=== PATIENT | female | born 1955 | race Caucasian/White ===

== ENCOUNTER 2017-02-02 09:52 | Inpatient (IN) | payer BC ==
[~2017-02-02] VITALS: Ht 162.6 cm; Wt 121.6 kg
--- NOTE | ~2017-02-02 | HC ---
[facility] [place] [address] CONSULTATION Name: SABINO STEVEN Room #: 435-P ADM IN M.R.#: [id number] Admission: 02/02/17 Attend Phys: Cruzito Hernandez Discharge: Date of : 53 Report #: [id number] THIS REPORT FOR: //name// CC: Saulo Mcintyre CARDIOLOGY CONSULTATION HISTORY OF PRESENT ILLNESS: The patient is a 61-year-old female. I am asked to evaluate her by Dr. Cristian Mcintyre and Dr. Ajith Doyle. She was admitted from Dr. Mcintyre's office for some significant anemia, hemoglobin in the 9 range. Apparently does have some history of a prior anemic episode a few years ago. Progressive dyspnea and shortness of breath, but she states the shortness of breath and dyspnea with exertion initiated approximately 3-4 weeks ago, has become progressively worse. She has had some large lower extremities for some time with some brawny edema, but they worsened over the last few weeks in addition. She underwent a Doppler for deep venous thrombosis, which was negative and a CT per PE protocol for some mild mediastinal adenopathy, interstitial infiltrates and septal thickening were noted, some blebs, some questionable atypical pneumonia, no definite clots. Abdominal CT, fatty liver, hepatomegaly, cholecystectomy, appendectomy, hysterectomy. The lower extremity venous Doppler was negative. She has had some dyspnea, but no definite chest pain. She has some equivocal EKG changes, but has maintained sinus rhythm. EKG, sinus rhythm with LVH. There have not been any constitutional illnesses such as fever, chills, nausea or vomiting. She appears also be significantly iron deficient. She had a cardiac catheterization, she believes 20 years ago. No prior cardiac intervention, does not follow with Cardiology. She does not take cholesterol medicines. PAST MEDICAL HISTORY: Positive for hypertension, obesity, lower extremity edema, lymphedema, venous insufficiency, cholecystectomy, hysterectomy, appendectomy, nephrolithiasis with lithotripsy. SOCIAL HISTORY: She is a nurse at the [employer]. 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 No alcohol or tobacco. FAMILY HISTORY: Mother, she states had an infarct in her 40s and father may be in his 60s, but lived to his 80s. ALLERGIES: KOKO INHIBITORS, CODEINE, ERYTHROMYCIN, MINOCYCLINE, CIPRO, DILANTIN, IBUPROFEN, ASPIRIN, not sure what happens with aspirin. HOME MEDICATIONS: Ziac 10/6.25, amlodipine, Prilosec, Tums, Tylenol. LABORATORY DATA: Creatinine 1.1, potassium 2.8. BNP 2554. Iron is low 45, TIBC high 515, 9% saturation. H and H is 9.3 [address]. [address] [address] CONSULTATION Name: SABINO STEVEN Jace Room #: 435-P [facility] IN M.R.#: [id number] Admission: 02/02/17 Attend Phys: Cruzito Hernandez Discharge: Date of : 53 Report #: [id number] PHYSICAL EXAMINATION: VITAL SIGNS: Blood pressure ____, pulse 57. GENERAL: She was diuresed with the IV Lasix. She feels fine otherwise. She is sitting up in the bed. HEENT: Pharynx is clear. NECK: Shows preserved upstrokes, questionable JVD. LUNGS: Prolonged expiratory phase, diminished in the bases. CARDIOVASCULAR: Regular rate and rhythm, S1, S2. ABDOMEN: Obese, nontender. I cannot palpate the liver edge, though may be slightly enlarged. EXTREMITIES: Revealed significant brawny edema with some pitting up to the level of the knee bilaterally. There is no significant skin breakdown. SKIN: Warm and dry without xanthoma or ulcer. There are mild venous stasis changes, some eczematous changes. NEUROLOGIC: Intact. MUSCULOSKELETAL: Gross joint deformity, valgus deformity of the knees. I did not ambulate her. ASSESSMENT: 1. Dyspnea, suspect multifactorial. 2. Anemia. 3. Hypertension. 4. Obesity. 5. Lymphedema/venous insufficiency. RECOMMENDATIONS AND PLAN: We will check an echo Doppler, replace the potassium. Agree with the Lasix, GI evaluation with an EGD and colonoscopy. We will obtain an echo Doppler and consider pharmacologic stress testing after GI has stabilized. I do not believe her ____ unstable cardiac issues here, but we will need further evaluation. We will follow with you. By: [id number] Chris Ramsay MD, FACC /nt
--- NOTE | ~2017-02-02 | 2DMMODE ---
[facility] [address] [place] [address] 2 D/M-MODE ECHOCARDIOGRAM Name: SABINO STEVEN Room #: 435-P [facility] IN ..#: [id number] Admission: 02/02/17 Attend Phys: Saulo Delogn Discharge: Date of : 53 Date of Service: 02/03/17 0958 Report #: [id number] THIS REPORT FOR: //name// APPROVED REPORT Study performed: 02/03/2017 08:25:26 EXAM: Comprehensive 2D, Doppler, and color-flow Echocardiogram Patient Location: Echo lab Room #: [facility] Status: routine BSA: 2.22 BP: 177/66 mmHg Other Information Study Quality: Good Indications Dyspnea Hypertension/HDD 2D Dimensions RVDd: 38.20 mm LVEF(%): 62.95 (>50%) IVSd: 11.75 (7-11mm) LVOT Diam: 14.69 (18-24mm) LVDd: 46.89 mm PWd: 12.11 (7-11mm) Ascending Ao: 31.98 (22-36mm) LVDs: 30.93 (25-40mm) Aortic Root: 23.17 mm IVC: 28.00 mm Lopez's LVEF: 62.95 % Volumes Left Atrial Volume (Systole) Single Plane 4CH: 84.30 mL Single Plane 2CH: 59.97 mL LA ESV Index: 34.00 mL/m2 Aortic Valve AoV Peak Rohith.: 1.84 m/s AO Peak Gr.: 13.53 mmHg LVOT Max P.88 mmHg LVOT Max V: 1.10 m/s CRYS Vmax: 1.02 cm2 Mitral Valve E/A Ratio: 3.4 MV Decel. Time: 96.59 ms [facility] [employer] [address] 2 D/M-MODE ECHOCARDIOGRAM Name: SABINO STEVEN Room #: [facility] IN ..#: [id number] Admission: 02/02/17 Attend Phys: Saulo Delong Discharge: Date of : 53 Date of Service: 02/03/17 0958 Report #: [id number] MV E Max Rohith.: 1.62 m/s MV A Rohith.: 0.47 m/s MV PHT: 28.01 ms IVRT: 41.52 ms Pulmonary Valve PV Peak Rohith.: 1.35 m/s PV Peak Gr.: 7.34 mmHg Pulmonary Vein P Vein S: 0.24 m/s P Vein D: 0.87 m/s P Vein S/D Ratio: 0.28 Tricuspid Valve TR Peak Rohith.: 4.07 m/s RAP Estimate: 15.00 mmHg TR Peak Gr.: 66.31 mmHg PA Pressure: 80.00 mmHg Left Ventricle The left ventricle is normal size. There is normal LV segmental wall motion. Mild concentric left ventricular hypertrophy. The left ventricular systolic function is normal. The left ventricular ejection fraction is within the normal range. LVEF is 60%. Severe diastolic dysfunction is present (restrictive filling). Right Ventricle The right ventricle is normal size. The right ventricular systolic function is normal. Atria Left atrium is mildly dilated. Right atrium is mildly dilated. Aortic Valve The aortic valve is normal in structure. No aortic regurgitation is present. There is no aortic valvular stenosis. Mitral Valve Mild mitral annular calcification Moderate mitral regurgitation. No evidence of mitral valve stenosis. Tricuspid Valve The tricuspid valve is normal in structure. Moderate to severe tricuspid regurgitation. PAP is estimated at 80 mmHg. Pulmonic Valve [address] [address] 2 D/M-MODE ECHOCARDIOGRAM Name: SABINO STEVEN Jace Room #: 435-P [facility] IN ..#: [id number] Admission: 02/02/17 Attend Phys: Saulo Delong Discharge: Date of : 53 Date of Service: 02/03/17 0958 Report #: [id number] The pulmonary valve is normal in structure. Mild to moderate pulmonic regurgitation. Great Vessels The aortic root is normal in size. IVC is dilated and collapses <50% with inspiration. Pericardium There is no pericardial effusion. <Conclusion> The left ventricular systolic function is normal. There is normal LV segmental wall motion. LVEF 60%. Both atria are dilated. The aortic valve is normal in structure. No aortic regurgitation or stenosis Mild mitral annular calcification. Moderate mitral regurgitation. Pulmonary artery pressure of 80mmHg There is no pericardial effusion. <ELECTRONICALLY SIGNED> By: Dutch Sloares MD, FACC 02/03/17957 7 7 Dutch Solares MD, FACC /INF
--- NOTE | ~2017-02-02 | H ---
[facility] [place] [address] HISTORY AND PHYSICAL Name: SABINO STEVEN Jace Room #: 435-P ADM IN M.R.#: [id number] Admission: 02/02/17 Attend Phys: Cruzito Hernandez Discharge: Date of : 53 Report #: [id number] THIS REPORT FOR: //name// CC: Saulo Mcintyre DATE OF SERVICE: 02/02/2017 CHIEF COMPLAINT: Shortness of breath and swelling. HISTORY OF PRESENT ILLNESS: The patient is a 61-year-old female who was admitted from home for evaluation of shortness of breath and weakness. She said for the last 2 weeks, she has had increased edema around the lower legs. During this time, she has developed progressive shortness of breath. She works at [employer] and has monitored her oxygen saturations at times over the last few weeks and noted them to be in the upper 80s when walking around at work. She denied any fever or chills, but has had a nonproductive cough. She was seen yesterday in the office by Dr. Mcintyre and found to be slightly anemic with hemoglobin 9.5, which is a 2 gram drop from last year. He felt that her liver was enlarged on exam and had clear evidence of lower extremity edema. She has had no specific chest pain with these episodes. She denies any signs of bleeding. PAST MEDICAL HISTORY: Hypertension. PAST SURGICAL HISTORY: Cholecystectomy, hysterectomy, kidney stones, lithotripsy,. FAMILY HISTORY: Noncontributory. SOCIAL HISTORY: No chronic alcohol or tobacco use. She is . Her has suffered from lung cancer. She does work at [employer]. ALLERGIES: LISINOPRIL CAUSED COUGH, CODEINE, ERYTHROMYCIN, MINOCYCLINE, CIPRO, HYDROCODONE, DILACOR, DILANTIN AND IBUPROFEN. MEDICATIONS: Tylenol, Tums, Prilosec, Ziac 10/6.25 mg, Norvasc 5 mg. REVIEW OF SYSTEMS: As above. She denied any significant weight loss, nausea or vomiting, diarrhea, melena, myalgias, arthralgias, syncope. She had a non-injury fall a couple of weeks ago with some right knee pain. PHYSICAL EXAMINATION: VITAL SIGNS: Temperature 36.8, pulse 51, respirations 20, blood pressure 178/76, O2 sat 96% at rest. GENERAL: She is awake and alert, in no distress. [address] [address] HISTORY AND PHYSICAL Name: SABINO STEVEN Room #: 435-P [facility] IN ..#: [id number] Admission: 02/02/17 Attend Phys: Cruzito Hernandez Discharge: Date of : 53 Report #: [id number] HEAD AND NECK: Unremarkable. LUNGS: Clear with no wheezing. There is a dry cough. HEART: Regular, no murmur. ABDOMEN: Soft, normoactive bowel sounds, obese, nontender. I could not appreciate any cardiomegaly due to body size. EXTREMITIES: Have 2+ pitting lower extremity edema. NEUROLOGIC: Cranial nerves intact. Speech is fluent. Motor strength 5/5 throughout. ASSESSMENT: 1. Dyspnea on exertion. 2. Hypertensive heart disease. 3. Anemia. 4. Lower extremity edema. 5. Hepatomegaly. PLAN: I have asked the Cardiology service to assess her and we will repeat her EKG with an echocardiogram and cardiac labs included in admission orders. If there are signs of bleeding or abnormality on CT of the abdomen, may consider a GI evaluation for evidence of GI blood loss. Tentative working diagnosis is congestive heart failure until further data is obtained. <ELECTRONICALLY SIGNED> By: Ajith Doyle MD 02/03/17 1019 1328 1349 Ajith Doyle MD /nt
--- NOTE | ~2017-02-02 | EKG ---
[address] [address] ELECTROCARDIOGRAM REPORT Name: SABINO STEVEN Room #: 435-P ADM IN M.R.#: [id number] Admission: 02/02/17 Attend Phys: Cruzito Hernandez Discharge: Date of : 53 Report #: [id number] THIS REPORT FOR: //name// [facility] Test Date: 2017-02-02 Test Time: 13:54:30 Pat Name: SABINO STEVEN Department: Room: 435 P Gender: F Electrical Assistant: Kurtis REYNOSO : 1955 Requested By: Ajith Doyle Order Number: [id number] MD: Daniel Pedroza Measurements Intervals Diana Rate: 55 P: 63 OR: 156 QRS: 61 QRSD: 122 T: 193 QT: 535 QTc: 512 Interpretive Statements Sinus rhythm LVH with secondary repolarization abnormality Prolonged QT interval Compared to ECG 06/14/2008 07:39:35 Prolonged QT interval now present Electronically Signed On 02-02-2017 21:51:29 MANAGER STORAGE by Daniel Pedroza [email or web address] <ELECTRONICALLY SIGNED> By: Daniel Pedroza MD 02/02/17 215 1354 1354 Daniel Pedroza MD /[place]
[2017-02-02 11:54] VITALS: BP 178/76
[2017-02-02] MEDS ORDERED: ZIAC 10-6.25 M1 EACH PO (12:03)
[2017-02-02] MEDS ORDERED: NORVASC5 MG PO (12:04)
[2017-02-02] MEDS ORDERED: PRILOSEC OTC20 MG PO (12:10)
[2017-02-02] MEDS ORDERED: SUPER B COMPLE150 MG PO (12:11)
[2017-02-02] MEDS ORDERED: TYLENOL EXTRA500 MG PO (12:11)
[2017-02-02 14:50] LABS: HEMATOCRIT 29.1 % (37.0-47.0); HEMOGLOBIN 9.3 gm/dL (12.0-15.0); MCH 26.3 pg (26.0-34.0); MCV 82.3 fL (80.0-100.0); RBC 3.54 mil/uL (4.20-5.00); RDW 17.6 % (10.5-14.5); WBC 7.2 thou/uL (4.0-11.0)
[2017-02-02 15:04] LABS: % SATURATION 9 % (20-39); IRON 45 ug/dL (50-170); TIBC 515 ug/dL (250-450); UIBC 470 ug/dL
[2017-02-02 15:08] LABS: ALBUMIN 3.6 g/dL (3.4-5.0); ALKALINE PHOSPHATASE 107 U/L (46-116); ANION GAP 8 mmol/L (7-16); BUN 20 mg/dL (7-18); CALCIUM 9.1 mg/dL (8.5-10.1); CHLORIDE 108 mmol/L (98-107); CO2 27 mmol/L (21-32); CREATININE 1.1 mg/dL (0.6-1.0); GLUCOSE 115 mg/dL (74-106); SGOT 13 U/L (15-37); SGPT 15 U/L (30-65); SODIUM 143 mmol/L (136-145); TOTAL BILIRUBIN 1.3 mg/dL (<0.1-1.0); TOTAL PROTEIN 7.7 g/dL (6.4-8.2); TROPONIN-I < 0.04 ng/mL (<0.06)
[2017-02-02 15:10] LABS: POTASSIUM 2.8 mmol/L (3.5-5.1)
[2017-02-02 15:32] LABS: FERRITIN 19 ng/mL (8-252)
[2017-02-02 16:04] LABS: FOLIC ACID > 40.0 ng/mL (8.6-58.9)
[2017-02-02 17:16] VITALS: BP 187/70
[2017-02-02 19:18] VITALS: BP 150/56
[2017-02-03 05:55] VITALS: BP 174/75
[2017-02-03 07:14] LABS: HEMATOCRIT 30.4 % (37.0-47.0); HEMOGLOBIN 9.5 gm/dL (12.0-15.0)
[2017-02-03 07:32] LABS: DIRECT BILIRUBIN 0.4 mg/dL (<0.1-0.3); TOTAL BILIRUBIN 1.6 mg/dL (<0.1-1.0)
[2017-02-03 07:53] VITALS: BP 177/66
[2017-02-03 11:46] LABS: CALCIUM 9.2 mg/dL (8.5-10.1); POTASSIUM 3.6 mmol/L (3.5-5.1)
[2017-02-03 13:43] LABS: ABG SAMPLE TYPE ARTERIAL; BE(vivo) 2.7 mmol/L (-2 to +3); LACTATE 1.58 mmol/L (0.5-2.0); O2(CT) 12.5 mL/dL (15.0-23.0); O2Hb 90.2 % (92.0-98.0); PCO2 30.4 mmHg (35.0-45.0); PO2 56.9 mmHg (80.0-100.0); pH 7.533 (7.360-7.450); sO2 92.9 % (92.0-98.0); tCO2 25.9 mmol/L (24.0-30.0)
[2017-02-03 13:44] LABS: ABG COMMENT NO COMPLICATIONS.; STICK SITE R.RADIAL
[2017-02-03 14:13] LABS: CHOLESTEROL 114 mg/dL (<200); HDL CHOLESTEROL 38 mg/dL (>40); LDL CHOLESTEROL 62 mg/dL (<100); MAGNESIUM 1.5 mg/dL (1.8-2.4); TRIGLYCERIDE 72 mg/dL (<150); VLDL 14 mg/dL (<40)
[2017-02-03 16:19] VITALS: BP 149/69
[2017-02-03 19:40] VITALS: BP 151/50
[2017-02-04 04:40] VITALS: BP 152/58
[2017-02-04 05:39] LABS: CREATININE 1.2 mg/dL (0.6-1.0); POTASSIUM 3.2 mmol/L (3.5-5.1)
[2017-02-04 08:00] VITALS: BP 178/71
[2017-02-04 16:00] VITALS: BP 140/43
[2017-02-04 19:57] VITALS: BP 145/49
[2017-02-05 03:00] VITALS: BP 146/62
[2017-02-05 16:44] VITALS: BP 144/45
[2017-02-05 19:11] LABS: ANGIOTENSIN CONVERTNG ENZ 37 U/L (14-82)
[2017-02-05 19:49] VITALS: BP 104/64
[2017-02-06 04:00] VITALS: BP 157/58
[2017-02-06 06:23] LABS: CALCIUM 8.5 mg/dL (8.5-10.1); CREATININE 1.1 mg/dL (0.6-1.0); POTASSIUM 4.6 mmol/L (3.5-5.1)
[2017-02-06 07:48] VITALS: BP 152/44
[2017-02-06 15:46] VITALS: BP 177/61
[2017-02-06 20:00] VITALS: BP 153/61
[2017-02-07 04:00] VITALS: BP 147/54
[2017-02-07 08:00] VITALS: BP 151/67
[2017-02-07 09:07] LABS: ANTI-DNA SCREEN <1 IU/mL (0-9); ANTI-RNP <0.2 AI (0.0-0.9)
[2017-02-07] MEDS ORDERED: AZITHROMYCIN 2250 MG PO (11:36)
[2017-02-07] MEDS ORDERED: BYSTOLIC2.5 MG PO (11:36)
[2017-02-07] MEDS ORDERED: ALBUTEROL2.5 MG/31 INH (11:36)
[2017-02-07] MEDS ORDERED: COZAAR100 MG PO (11:36)
[2017-02-07 12:57] VITALS: BP 151/67
[2017-02-08 16:08] LABS: c-ANCA <1:20 titer (Neg:<1:20); p-ANCA <1:20 titer (Neg:<1:20)
== END 2017-02-07 16:04 | disposition home or self-care (01) | DRG 291 ==
LOC: 4S 09:52 → ENTRNSPT 02-07 14:12 → EDTRNSPTSTS 02-07 14:14 → 4S 02-07 16:04
PROVIDERS: Internal Medicine; Internal Medicine Cardiovascular Disease; Internal Medicine Gastroenterology; Internal Medicine Geriatric Medicine; Internal Medicine Pulmonary Disease
DX: I11.0 Hypertensive heart disease with heart failure (principal); J96.01 Acute respiratory failure with hypoxia; Z68.42 Body mass index [BMI] 45.0-49.9, adult; I50.31 Acute diastolic (congestive) heart failure; E66.9 Obesity, unspecified; D64.9 Anemia, unspecified; K21.9 Gastro-esophageal reflux disease without esophagitis; I27.20 Pulmonary hypertension, unspecified; R59.0 Localized enlarged lymph nodes; I34.0 Nonrheumatic mitral (valve) insufficiency; K76.0 Fatty (change of) liver, not elsewhere classified; G47.33 Obstructive sleep apnea (adult) (pediatric); Z99.81 Dependence on supplemental oxygen; Z88.8 Allergy status to other drugs, medicaments and biological substances; Z88.1 Allergy status to other antibiotic agents; Z88.6 Allergy status to analgesic agent; Z87.442 Personal history of urinary calculi; Z90.710 Acquired absence of both cervix and uterus; Z90.49 Acquired absence of other specified parts of digestive tract; Z88.0 Allergy status to penicillin; Z80.8 Family history of malignant neoplasm of other organs or systems
CPT/HCPCS: 10100

== ENCOUNTER → 2017-03-24 | Outpatient (CLI) | payer BC ==
[~2017-03-24] MED LIST: ALBUTEROL2.5 MG/31 INH; ALDACTONE25 MG PO; AMLODIPINE BESY10 MG PO; ATORVASTATIN CA40 MG PO; AZITHROMYCIN 2250 MG PO; BYSTOLIC 5 MG5 M1 PO; BYSTOLIC2.5 MG PO; CARDIZEM CD240 MG PO; COZAAR100 MG PO; DEMADEX20 MG PO; EDARBI80 MG PO; KLOR-CON 1010 MEQ PO; NORVASC5 MG PO; PAIN RELIEVER325 MG PO; POTASSIUM20 PO; PRILOSEC OTC20 MG PO; SUPER B COMPLE150 MG PO; TYLENOL EXTRA500 MG PO; XARELTO20 MG PO; ZIAC 10-6.25 M1 EACH PO
== END ==
LOC: SLEEPLAB 03-10 11:14
DX: G47.33 Obstructive sleep apnea (adult) (pediatric) (principal)

== ENCOUNTER → 2017-08-31 | Outpatient (CLI) | payer BC ==
[~2017-08-31] MED LIST changes: -BYSTOLIC 5 MG5 M1 PO; -CARDIZEM CD240 MG PO; -KLOR-CON 1010 MEQ PO; -XARELTO20 MG PO
== END ==
LOC: RAD 15:31
DX: R07.89 Other chest pain (principal)

== ENCOUNTER 2018-01-19 19:46 | Inpatient (IN) | payer BC ==
[~2018-01-19] VITALS: Ht 162.6 cm; Wt 103.4 kg
--- NOTE | ~2018-01-19 | H ---
[facility] [address] HISTORY AND PHYSICAL Name: SABINO STEVEN Room #: 241-P ADM IN M.R.#: [id number] Admission: 01/19/18 Attend Phys: Ko Ritter MD Discharge: Date of : 53 Report #: [id number] THIS REPORT FOR: //name// CC: Saulo Ritter DATE OF SERVICE: 01/20/2018 CHIEF COMPLAINT: Palpitations. HISTORY OF PRESENT ILLNESS: The patient is a 62-year-old female with a history of pulmonary hypertension, who presented to the ER with palpitations and her heart "racing". She said for the last 24 hours, she has noted intermittently the sensation of tachycardia. She has had it off and on. She said it is for a couple of weeks, but whenever she has presented for EKG, there has not been any documented tachyarrhythmia. She was complaining of a little more shortness of breath and weakness in her legs yesterday when these symptoms occurred. They seemed to be more persistent. She presented to the Emergency Room. Initial studies revealed rapid atrial fibrillation. PAST MEDICAL HISTORY: Anemia of chronic disease, mitral regurgitation, pulmonary hypertension, history of hypoxic respiratory failure, pneumonia in 01/2017, morbid obesity, trigeminal neuralgia, kidney stones and hiatal hernia with esophageal spasms. PAST SURGICAL HISTORY: Cholecystectomy and appendectomy in the 1980s. FAMILY HISTORY: Noncontributory. SOCIAL HISTORY: She is . No chronic alcohol or tobacco use. She has been exposed to secondary smoke. ALLERGIES: KOKO INHIBITORS, ASPIRIN, EDARBI, TEGRETOL, CODEINE, GABAPENTIN, HYDROCHLOROTHIAZIDE, HYDROCODONE, LOSARTAN, NSAIDS, PENICILLIN, PHENYTOIN, DIPHENHYDRAMINE, EPINEPHRINE AND MINOCYCLINE. MEDICATIONS: Bystolic, omeprazole, torsemide and potassium. REVIEW OF SYSTEMS: She denies headache, chest pain, shortness of breath, abdominal pain, nausea, vomiting, diarrhea, constipation, dysuria or syncope. PHYSICAL EXAMINATION: VITAL SIGNS: Temperature 36.8; pulse 78; respirations 21; blood pressure 98/39, ranging to 112/52 and O2 sat 100% on room air. GENERAL: She is awake and alert, in no distress. [address] [address] HISTORY AND PHYSICAL Name: SABINO STEVEN Room #: [address] [place] [address] IN .R.#: [id number] Admission: 01/19/18 Attend Phys: Ko Ritter MD Discharge: Date of : 53 Report #: [id number] HEAD AND NECK: Unremarkable. LUNGS: Clear. HEART: Regular. ABDOMEN: Soft. Normoactive bowel sounds. EXTREMITIES: No edema. NEUROLOGIC: Motor strength intact. ASSESSMENT: 1. New-onset atrial fibrillation. 2. Pulmonary hypertension. PLAN: Dr. Hollingsworth has assessed her and adjusted cardiac medications. We will focus on rhythm control. Other home medications to continue. <ELECTRONICALLY SIGNED> By: Ajith Doyle MD 01/21/18 0823 1108 1153 Ajith Doyle MD /nt
--- NOTE | ~2018-01-19 | D ---
[facility] [place] [address] DISCHARGE SUMMARY Name: SABINO STEVEN Room #: 241-P [facility] IN M.R.#: [id number] Admission: 01/19/18 Attend Phys: Ko Ritter MD Discharge: 01/21/18 Date of : 53 Report #: [id number] THIS REPORT FOR: //name// CC: Saulo Rachelcuskurt Ritter DATE OF SERVICE: 01/21/2018 FINAL DIAGNOSES: 1. Acute new-onset atrial fibrillation. 2. Pulmonary hypertension. HOSPITAL COURSE: The patient was admitted with palpitations and tachycardia. She was found to be in rapid atrial fibrillation. She was treated with IV Cardizem and managed by Cardiology. Other home medications were continued. She had no other interval complication. DISPOSITION: To be discharged to home with diet and activity as tolerated, resume all medicines plus Cardizem and Xarelto. Follow up with Dr. Mcintyre and Dr. Hollingsworth in 2 weeks. <ELECTRONICALLY SIGNED> By: Ajith Doyle MD 01/25/18 1339 1235 195 Ajith Doyle MD /nt
--- NOTE | ~2018-01-19 | EKG ---
[place] [address] [facility] [place] [address] ELECTROCARDIOGRAM REPORT Name: SABINO STEVEN Room #: 241-P ADM IN M.R.#: [id number] Admission: 01/19/18 Attend Phys: oK Ritter MD Discharge: Date of : 53 Report #: [id number] THIS REPORT FOR: //name// [facility] ED Test Date: 2018-01-19 Test Time: 20:05:04 Pat Name: SABINO STEVEN Department: Room: 241 Gender: F Fisher Trot Line: VICKY : 1955 Requested By: Faviola Womack Order Number: [id number] MD: Dutch Solares Measurements Intervals [place] Rate: 139 P: [place]: QRS: 33 QRSD: 83 T: 172 QT: 326 QTc: 496 Interpretive Statements Atrial fibrillation Poor R wave progression Repol abnrm suggests ischemia, diffuse leads Compared to ECG 03/02/2017 07:18:25 Atrial fibrillation has replaced sinus rhythm ST and T wave abnormality is more pronounced Electronically Signed On 01-20-2018 8:57:51 CDT by Dutch Solares [email or web address] <ELECTRONICALLY SIGNED> By: Dutch Solares MD, [facility] 01/20/18 0857 04 04 Dutch Solares MD, [facility] /EPI
[2018-01-19 19:58] VITALS: BP 149/61
[2018-01-19] MEDS ORDERED: NORVASC5 MG PO (20:07)
[2018-01-19] MEDS ORDERED: KLOR-CON 1010 MEQ PO (20:08)
[2018-01-19 20:38] LABS: BASOPHILS 1.2 % (0.0-2.0); EOSINOPHILS 0.5 % (0.0-3.0); HEMATOCRIT 35.7 % (37.0-47.0); HEMOGLOBIN 11.7 gm/dL (12.0-15.0); LYMPHOCYTES 26.9 % (24.0-44.0); MCH 29.1 pg (26.0-34.0); MCHC 32.9 g/dL (28.0-37.0); MCV 88.5 fL (80.0-100.0); MONOCYTES 7.5 % (1.0-8.0); PLATELET COUNT 220 thou/uL (150-400); POLYS 63.9 % (36.0-66.0); RBC 4.03 mil/uL (4.20-5.00); RDW 14.3 % (10.5-14.5); WBC 9.3 thou/uL (4.0-11.0)
[2018-01-19 20:41] LABS: ANION GAP 10 mmol/L (7-16); BUN 21 mg/dL (7-18); CALCIUM 9.4 mg/dL (8.5-10.1); CHLORIDE 104 mmol/L (98-107); CO2 28 mmol/L (21-32); CREATININE 1.4 mg/dL (0.6-1.0); GLUCOSE 133 mg/dL (74-106); POTASSIUM 3.6 mmol/L (3.5-5.1); SODIUM 142 mmol/L (136-145)
[2018-01-19 20:50] LABS: APTT 26.6 Seconds (24.5-32.8); PROTIME 10.9 Seconds (9.3-11.4); TROPONIN-I <0.06 ng/mL (<0.06)
[2018-01-19 22:47] VITALS: BP 151/67
[2018-01-20] VITALS (16 sets, daily range): BP systolic 91–161; BP diastolic 39–90
[2018-01-21 00:01] VITALS: BP 153/84
[2018-01-21 04:00] VITALS: BP 167/80
[2018-01-21 08:01] VITALS: BP 157/64
[2018-01-21] MEDS ORDERED: BYSTOLIC 5 MG5 M1 PO (09:22)
[2018-01-21] MEDS ORDERED: CARDIZEM CD240 MG PO (09:23)
[2018-01-21] MEDS ORDERED: XARELTO20 MG PO (09:23)
[2018-01-21 09:27] VITALS: BP 157/64
[2018-01-21 10:00] VITALS: BP 157/64
== END 2018-01-21 13:02 | disposition home or self-care (01) | DRG 309 ==
LOC: ER 19:46 → EROBS 21:28 → ICU 21:28
PROVIDERS: Emergency Medicine
DX: I48.91 Unspecified atrial fibrillation (principal); I50.30 Unspecified diastolic (congestive) heart failure; I27.20 Pulmonary hypertension, unspecified; I25.10 Atherosclerotic heart disease of native coronary artery without angina pectoris; I42.9 Cardiomyopathy, unspecified; E78.5 Hyperlipidemia, unspecified; I11.0 Hypertensive heart disease with heart failure; E66.01 Morbid (severe) obesity due to excess calories; Z68.39 Body mass index [BMI] 39.0-39.9, adult; Z90.49 Acquired absence of other specified parts of digestive tract; Z87.442 Personal history of urinary calculi; Z79.899 Other long term (current) drug therapy; Z88.6 Allergy status to analgesic agent; Z88.1 Allergy status to other antibiotic agents; Z88.5 Allergy status to narcotic agent; Z88.0 Allergy status to penicillin; Z88.8 Allergy status to other drugs, medicaments and biological substances; Z80.0 Family history of malignant neoplasm of digestive organs
CPT/HCPCS: 10203

== ENCOUNTER 2018-02-22 01:55 | Inpatient (IN) | payer BC ==
[~2018-02-22] VITALS: Ht 162.6 cm; Wt 105.4 kg
--- NOTE | ~2018-02-22 | EKG ---
[address] [place] [address] ELECTROCARDIOGRAM REPORT Name: SABINO STEVEN Room #: 215-P ADM IN M.R.#: [id number] Admission: 02/22/18 Attend Phys: Ajith Doyle MD Discharge: Date of : 53 Report #: [id number] THIS REPORT FOR: //name// [facility] ED Test Date: 2018-02-22 Test Time: 02:16:17 Pat Name: SABINO STEVEN Department: Room: [facility] Gender: F Clinical Trials Specialist: lisa : 1955 Requested By: Debora Sood Order Number: [id number] MD: Dutch Solares Measurements Intervals [place] Rate: 119 P: FL: QRS: 35 QRSD: 92 T: QT: 363 QTc: 511 Interpretive Statements Atrial fibrillation with a rapid ventricular response Poor R wave progression Nonspecific ST and T wave abnormality Prolonged QT interval Compared to ECG 01/19/2018 20:05:04 ST and T wave abnormality is less pronounced Electronically Signed On 02-22-2018 9:07:22 TONGUE CARRIER by Dutch Solares [email or web address] <ELECTRONICALLY SIGNED> By: Dutch Solares MD, [facility] 02/22/18 0907 5 Dutch Solares MD, [facility] /EPI
--- NOTE | ~2018-02-22 | EKG ---
[address] [place] [address] ELECTROCARDIOGRAM REPORT Name: SABINO STEVEN Room #: 215-P ADM IN M.R.#: [id number] Admission: 02/22/18 Attend Phys: Ajith Doyle MD Discharge: Date of : 53 Report #: [id number] THIS REPORT FOR: //name// [facility] ED Test Date: 2018-02-22 Test Time: 03:32:10 Pat Name: SABINO STEVEN Department: Room: [facility] Gender: F Therapist Rrt: Josue PAUL : 1955 Requested By: Debora Sood Order Number: [id number] MD: Dutch Solares Measurements Intervals [place] Rate: 54 P: 69 CT: 155 QRS: 43 QRSD: 104 T: 36 QT: 471 QTc: 447 Interpretive Statements Sinus rhythm Poor R wave progression Compared to ECG 01/19/2018 20:05:04 Atrial fibrillation no longer present Electronically Signed On 02-22-2018 9:08:29 SENIOR CLERK by Dutch Solares [email or web address] <ELECTRONICALLY SIGNED> By: Dutch Solares MD, [facility] 02/22/18 0908 1 1 Dutch Solares MD, [facility] /EPI
--- NOTE | ~2018-02-22 | DSS ---
[facility] [place] [address] SHORT STAY SUMMARY Name: SABINO STEVEN Room #: 215-P [facility] IN M.R.#: [id number] Admission: 02/22/18 Attend Phys: Ajith Doyle MD Discharge: 02/22/18 Date of : 53 Report #: [id number] THIS REPORT FOR: //name// CC: Saulo Kenald Devendra DATE OF SERVICE: 02/22/2018 CHIEF COMPLAINT: Palpitations. HISTORY OF PRESENT ILLNESS: The patient is a 62-year-old female who came to the Emergency Room with palpitations. She has a known history of paroxysmal AFib and presented to the ER with rapid AFib and heart rates in the 140s. She also has a history of chronic diastolic heart failure, pulmonary hypertension along with morbid obesity. She was admitted to telemetry and received a short course of IV diltiazem overnight and subsequently converted to sinus rhythm. PAST MEDICAL HISTORY: Pulmonary hypertension, paroxysmal AFib, chronic diastolic heart failure and morbid obesity. PAST SURGICAL HISTORY: None. FAMILY HISTORY: Noncontributory. 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 No history of chronic alcohol or tobacco use. ALLERGIES: MINOCYCLINE, KOKO INHIBITORS. MEDICATIONS: Xarelto, Cardizem, Lasix, potassium. REVIEW OF SYSTEMS: Denies headache, chest pain, shortness of breath, abdominal pain, dysuria, syncope or fall. OBJECTIVE: VITAL SIGNS: Temperature 37.2, pulse 57, respirations 18, blood pressure 143/58, O2 sat 98% on room air. GENERAL: She is awake and alert, eating. HEAD AND NECK: Unremarkable. LUNGS: Clear. HEART: Regular. ABDOMEN: Soft, normoactive bowel sounds. EXTREMITIES: 3+ edema. HOSPITAL COURSE: The patient was admitted to the cardiac care unit and again [facility] [address] [place] [address] SHORT STAY SUMMARY Name: SABINO STEVEN Room #: 215-P [facility]#: [id number] Admission: 02/22/18 Attend Phys: Ajith Doyle MD Discharge: 02/22/18 Date of : 53 Report #: [id number] received a brief course of IV diltiazem, which converted her to sinus rhythm. She received additional diuretics and other home medications were continued. The Cardiology Service saw her in consultation and only recommended Cardizem-CD 360 mg daily with followup as an outpatient. She had no other interval complication. DISPOSITION: She will be discharged to home with low salt diet. Activity as tolerated. She can resume work. Follow up with Dr. Ramsay as directed. Medications are Demadex 40 mg, potassium 20 mEq, Cardizem-CD 360 mg a day, Bystolic 10 mg, Xarelto 20 mg. By: 1243 1305 Ajith Doyle MD /nt
[~2018-02-22 01:55] MED LIST changes: +BYSTOLIC 5 MG5 M1 PO; +CARDIZEM CD240 MG PO; +KLOR-CON 1010 MEQ PO; +XARELTO20 MG PO
[2018-02-22 02:00] VITALS: BP 168/105
[2018-02-22 02:19] LABS: ABSOLUTE NEUTROPHILS 4.4 thou/uL (1.4-8.2); BASOPHILS 1.2 % (0.0-2.0); EOSINOPHILS 1.1 % (0.0-3.0); HEMATOCRIT 35.1 % (37.0-47.0); HEMOGLOBIN 11.4 gm/dL (12.0-15.0); LYMPHOCYTES 25.9 % (24.0-44.0); MCH 28.9 pg (26.0-34.0); MCHC 32.5 g/dL (28.0-37.0); MONOCYTES 7.7 % (1.0-8.0); PLATELET COUNT 194 thou/uL (150-400); POLYS 64.1 % (36.0-66.0); RBC 3.94 mil/uL (4.20-5.00); RDW 14.1 % (10.5-14.5); WBC 6.9 thou/uL (4.0-11.0)
[2018-02-22 02:25] LABS: CALCIUM 9.4 mg/dL (8.5-10.1); CREATININE 1.3 mg/dL (0.6-1.0); POTASSIUM 3.1 mmol/L (3.5-5.1)
[2018-02-22 02:31] LABS: APTT 39.7 Seconds (24.5-32.8); INR 1.4; PROTIME 14.5 Seconds (9.3-11.4)
[2018-02-22 03:23] VITALS: BP 156/78
[2018-02-22 03:54] VITALS: BP 174/92
[2018-02-22 04:02] VITALS: BP 150/66
[2018-02-22] MEDS ORDERED: TYLENOL EXTRA500 MG PO (05:08)
[2018-02-22] MEDS ORDERED: PRILOSEC OTC20 MG PO (05:12)
[2018-02-22 08:21] VITALS: BP 143/55
[2018-02-22] MEDS ORDERED: K-DUR 20 MEQ T20 MEQ PO (12:44)
[2018-02-22 13:10] VITALS: BP 143/55
== END 2018-02-22 13:48 | disposition home or self-care (01) | DRG 309 ==
LOC: ER 01:55 → EROBS 03:11 → 2N 03:11 → ENTRNSPT 13:27 → EDTRNSPTSTS 13:28 → 2N 13:48
PROVIDERS: Student in an Organized Health Care Education/Training Program
DX: I48.0 Paroxysmal atrial fibrillation (principal); I50.32 Chronic diastolic (congestive) heart failure; I11.0 Hypertensive heart disease with heart failure; E66.01 Morbid (severe) obesity due to excess calories; I27.20 Pulmonary hypertension, unspecified; E87.6 Hypokalemia; E66.9 Obesity, unspecified; G50.0 Trigeminal neuralgia; I25.10 Atherosclerotic heart disease of native coronary artery without angina pectoris; I42.9 Cardiomyopathy, unspecified; E78.5 Hyperlipidemia, unspecified; Z90.710 Acquired absence of both cervix and uterus; Z68.39 Body mass index [BMI] 39.0-39.9, adult; Z90.49 Acquired absence of other specified parts of digestive tract; Z87.442 Personal history of urinary calculi; Z79.01 Long term (current) use of anticoagulants; Z79.899 Other long term (current) drug therapy; Z88.6 Allergy status to analgesic agent; Z88.1 Allergy status to other antibiotic agents; Z88.5 Allergy status to narcotic agent; Z88.0 Allergy status to penicillin; Z88.8 Allergy status to other drugs, medicaments and biological substances; Z80.8 Family history of malignant neoplasm of other organs or systems
CPT/HCPCS: 10081

== ENCOUNTER → 2019-06-29 | Outpatient (CLI) | payer OTHER ==
[~2019-06-29] MED LIST changes: +K-DUR 20 MEQ T20 MEQ PO
== END ==
LOC: SJCVC 11:37 → SJCVCIMAG 11:37
DX: I08.1 Rheumatic disorders of both mitral and tricuspid valves (principal); R94.31 Abnormal electrocardiogram [ECG] [EKG]; I44.39 Other atrioventricular block; I48.92 Unspecified atrial flutter; I25.10 Atherosclerotic heart disease of native coronary artery without angina pectoris; I48.91 Unspecified atrial fibrillation; I11.0 Hypertensive heart disease with heart failure; I50.32 Chronic diastolic (congestive) heart failure; I27.20 Pulmonary hypertension, unspecified; G50.0 Trigeminal neuralgia; E78.00 Pure hypercholesterolemia, unspecified; K21.9 Gastro-esophageal reflux disease without esophagitis; G47.30 Sleep apnea, unspecified; Z90.49 Acquired absence of other specified parts of digestive tract; Z90.710 Acquired absence of both cervix and uterus; Z79.899 Other long term (current) drug therapy

== ENCOUNTER → 2020-10-07 | Outpatient (CLI) | payer OTHER ==
--- NOTE | 2020-10-07 14:59 | 2DMMODE ---
[facility] [place] [address] 2 D/M-MODE ECHOCARDIOGRAM Name: SABINO STEVEN Room #: REG [facility]#: [id number] Admission: 10/07/20 Attend Phys: Jeremy Glez MD Discharge: Date of : 53 Report #: [id number] THIS REPORT FOR: cc: Saulo Mcintyre MD, Christopher B. MD Park, Jin S. MD ~ APPROVED REPORT Study performed: 10/07/2020 13:28:21 EXAM: Comprehensive 2D, Doppler, and color-flow Echocardiogram Patient Location: Out-Patient Status: routine BSA: 2.17 HR: 79 bpm BP: 162/86 mmHg Rhythm: Atrial Fibrillation Other Information Study Quality: Good Indications Nocturnal hypoxia, PHTN. 2D Dimensions RVDd: 31.14 mm IVSd: 8.88 (7-11mm) LVOT Diam: 18.82 (18-24mm) LVDd: 46.27 mm PWd: 9.29 (7-11mm) LVDs: 33.73 (25-40mm) Left Atrium: 39.53 (27-40mm) Aortic Root: 31.04 mm Volumes Left Atrial Volume (Systole) Single Plane 4CH: 57.33 mL Single Plane 2CH: 73.33 mL Aortic Valve AoV Peak Rohith.: 1.45 m/s AO Peak Gr.: 8.41 mmHg LVOT Max P.12 mmHg LVOT Max V: 1.02 m/s CRYS Vmax: 1.95 cm2 [facility] [address] [place] [address] 2 D/M-MODE ECHOCARDIOGRAM Name: SABINO STEVEN Room #: REG [facility]#: [id number] Admission: 10/07/20 Attend Phys: Jeremy Glez MD Discharge: Date of : 53 Report #: [id number] Mitral Valve MV Decel. Time: 135.00 ms MV E Max Rohith.: 1.60 m/s Pulmonary Valve PV Peak Rohith.: 1.15 m/s PV Peak Gr.: 5.28 mmHg Tricuspid Valve TR Peak Rohith.: 3.49 m/s RAP Estimate: 5.00 mmHg TR Peak Gr.: 49.00 mmHg PA Pressure: 54.00 mmHg Left Ventricle The left ventricle is normal size. There is normal LV segmental wall motion. There is normal left ventricular wall thickness. Left ventricular systolic function is normal. LVEF is 60%. This study is not technically sufficient to allow evaluation of the LV diastolic function due to atrial fibrillation. Right Ventricle The right ventricle is normal size. The right ventricular systolic function is normal. Atria Left atrium is moderately dilated. Right atrium is mildly dilated. Aortic Valve Aortic valve is trileaflet. No aortic regurgitation is present. There is no aortic valvular stenosis. Mitral Valve Mitral valve leaflets are mildly thickened. Mild mitral annular calcification. Mild to moderate mitral regurgitation. Tricuspid Valve The tricuspid valve is normal in structure. Mild to moderate tricuspid regurgitation. Estimated PAP is 52 mmHg. Pulmonic Valve The pulmonary valve is normal in structure. Mild pulmonic regurgitation. Great Vessels The aortic root is normal in size. The ascending aorta is normal in size. IVC is normal in size and collapses >50% with [facility] [address] [place] [address] 2 D/M-MODE ECHOCARDIOGRAM Name: SABINO STEVEN Room #: [facility]#: [id number] Admission: 10/07/20 Attend Phys: Jeremy Glez MD Discharge: Date of : 53 Report #: [id number] inspiration. Pericardium There is no pericardial effusion. <Conclusion> The left ventricle is normal size. There is normal left ventricular wall thickness. Left ventricular systolic function is normal. The right ventricle is normal size. Left atrium is moderately dilated. Aortic valve is trileaflet. Mild to moderate mitral regurgitation. Mild to moderate tricuspid regurgitation. <ELECTRONICALLY SIGNED> By: Barak Hollingsworth MD 10/07/20 [id number] Barak Hollingsworth MD /INF
== END ==
LOC: CV 08:54
PROVIDERS: ATTEND Internal Medicine Pulmonary Disease
DX: I08.8 Other rheumatic multiple valve diseases (principal); I27.20 Pulmonary hypertension, unspecified; R09.02 Hypoxemia